=== PATIENT | female | born 1965 | race Asian ===

== ENCOUNTER 2020-10-10 21:45 | Emergency (ER) | payer OTHER ==
[~2020-10-10] VITALS: Ht 154.9 cm; Wt 46.7 kg
[2020-10-10 21:51] VITALS: BP 148/90
--- NOTE | 2020-10-10 21:51 | NUR ---
to bed ambulatory
--- NOTE | 2020-10-10 22:20 | NUR ---
RECEIVED IN BED 12 WITH C/O RLE SWELLING. PT HAD STENTS PLACED YESTERDAY AND NOTED TODAY THAT RLE WAS SWELLING. F/C IN PLACE WITH TERESA COLORED URINE DRAINING. PT IS ON PYRIDIUM.
--- NOTE | 2020-10-10 23:01 | NUR ---
Ultrasound at bedside.
[2020-10-11] MEDS ORDERED: METH-1681 PO (01:05)
[2020-10-11] MEDS ORDERED: APIX5TAB PO (01:05)
[2020-10-11 01:15] VITALS: BP 148/90
--- NOTE | 2020-10-11 01:15 | NUR ---
Patient discharged with v/s stable. Written and verbal after care instructions given and explained. Patient alert, oriented and verbalized understanding of instructions. Ambulatory with steady gait. All questions addressed prior to discharge. ID band removed. Patient advised to follow up with PMD. Rx of BALJINDER BLANCA given. Patient educated on indication of medication including possible reaction and side effects. Opportunity to ask questions provided and answered.
== END 2020-10-11 01:15 | disposition home or self-care (01) ==
LOC: MED 21:45
DX: M79.605 Pain in left leg (principal); M79.89 Other specified soft tissue disorders
CPT/HCPCS: 93970; 99284